=== PATIENT | female | born 1995 | race American Indian/Alaskan Native ===

== ENCOUNTER 2018-11-12 12:39 | Emergency (ER) | payer MEDICAID ==
[2018-11-12 12:59] VITALS: BP 99/61
[2018-11-12] MEDS ORDERED: NACL 0.9% 1000 ML 1,000 ML IV ONE (13:00)
--- NOTE | 2018-11-12 13:07 | Emergency Department Report ---
ED Syncope HPI - General Chief Complaint: Syncope Stated Complaint: SYNCOPY Time Seen by Provider: 11/12/18 12:51 Source: patient, family, EMS Exam Limitations: no limitations - History of Present Illness Initial Comments: Ms. Heredia is a very pleasant 23 yo female with hx of asthma who presents after syncopal episode at a retail center. She had preceding sensation of lightheade dness. She had been in her normal state of health prior to episode. She is currently 16 weeks pregant. JUSTIN 04/27/2019. Has been eating well. Her fiance does not feel that she drinks enough fluid. NO chest pain or palpitations. Denies leg pain. No abd pain. No VB. Has had intermittent headaches over the past several weeks, frontal mild throbbing headache which resolves spontaneously. Currenty feels lightheaded while sitting in stretcher. Primary Medical Esthetician Dr. Beatris Campos. Ms. Heredia plans to deliver her baby at [facility]. THis is Ms. Heredia' first . She underwent genetic screening on yesterday. ED Review of Systems ROS: Stated complaint: SYNCOPY Other details as noted in HPI Comment: All other systems reviewed and negative Constitutional: denies: fever, malaise Respiratory: denies: cough Cardiovascular: denies: chest pain ED Past Medical Hx - Past Medical History Previous Medical History?: Yes Hx Asthma: Yes - Surgical History Past Surgical History?: No - Social History Smoking Status: Never Smoker ED Physical Exam - General Limitations: No Limitations General appearance: alert, in no apparent distress - Head Head exam: Present: atraumatic, normocephalic - Eye Eye exam: Present: normal appearance - ENT ENT exam: Present: mucous membranes moist - Neck Neck exam: Present: normal inspection. Absent: tenderness, meningismus - Respiratory Respiratory exam: Present: normal lung sounds bilaterally. Absent: respiratory distress, wheezes, rhonchi - Cardiovascular Cardiovascular Exam: Present: regular rate, normal rhythm, normal heart sounds. Absent: systolic murmur, diastolic murmur, rubs, gallop - GI/Abdominal GI/Abdominal exam: Present: soft, normal bowel sounds, other (gravid abdomen). Absent: tenderness, guarding, rebound - Extremities Exam Extremities exam: Present: normal inspection - Back Exam Back exam: Present: normal inspection - Neurological Exam Neurological exam: Present: alert, oriented X3 - Psychiatric Psychiatric exam: Present: normal affect, normal mood - Skin Skin exam: Present: warm, dry, intact, normal color. Absent: rash ED Course Vital Signs 11/12/18 12:58 Temperature 98.9 F Pulse Rate 88 Respiratory 16 Rate Blood Pressure 99/61 Blood Pressure 99/61 [Left] O2 Sat by Pulse 100 Oximetry ED Medical Decision Making - EKG Data EKG shows normal: sinus rhythm, axis, intervals, QRS complexes, ST-T waves Rate: normal - EKG Data Interpretation: no acute changes, normal EKG - Medical Decision Making Ms. Heredia presents with syncope with preceding lightheadedness. My clinical impression: orthostasis in . No indication of pulmonary embolism, arrhythmia or severe dehydration. Encouraged hydration. She received IV fluid in the ED. CBC chemistry within normal limits. Critical care attestation.: If time is entered above; I have spent that time in minutes in the direct care of this critically ill patient, excluding procedure time. ED Disposition Clinical Impression: Orthostasis, Syncope, Second trimester Disposition: DC-01 TO HOME OR SELFCARE Is pt being admited?: No Does the pt Need Aspirin: No Condition: Stable Instructions: Syncope (ED) Referrals: PRIMARY CARE, [Referring] - 3-5 Days
[2018-11-12 13:21] LABS: Basophils % (Auto) 0.3 % (0.0-1.8); Eosinophils # (Auto) 0.1 K/mm3 (0.0-0.4); Eosinophils % (Auto) 0.5 % (0.0-4.3); Hematocrit 34.6 % (30.3-42.9); Hemoglobin 11.4 gm/dl (10.1-14.3); Lymphocytes # (Auto) 2.1 K/mm3 (1.2-5.4); Lymphocytes % (Auto) 21.2 % (13.4-35.0); Mean Corpuscular HGB Conc 33 % (30-34); Mean Corpuscular Volume 83 fl (79-97); Monocytes # (Auto) 0.8 K/mm3 (0.0-0.8); Platelet Count 215 K/mm3 (140-440); Red Blood Count 4.16 M/mm3 (3.65-5.03); Red Cell Distribution Width 13.1 % (13.2-15.2)
[2018-11-12 13:41] LABS: BUN/Creatinine Ratio 10; Blood Urea Nitrogen 5 mg/dL (7-17); Calcium 8.6 mg/dL (8.4-10.2); Hemolysis Index 5
== END 2018-11-12 13:55 | disposition home or self-care (01) ==
LOC: ED 12:39
DX: O26.892 Other specified pregnancy related conditions, second trimester (principal); R55 Syncope and collapse; R42 Dizziness and giddiness; Z3A.16 16 weeks gestation of pregnancy
CPT/HCPCS: 36415; 80048; 85025; 93005; 93010; 96360; 99284; J7030

== ENCOUNTER 2019-02-19 17:10 | Observation (INO) | payer OTHER, MEDICAID ==
[2019-02-19] MEDS ORDERED: LACTATED RINGERS 1,000 ML IV ONE (18:48)
[2019-02-19 19:33] LABS: Bacteria,Urine 1+ /HPF (Negative); Bilirubin,Urine NEG (Negative); Blood,Urine NEG (Negative); Calcium Oxalate Crystals,Urine FEW; Color,Urine Yellow (Yellow); Mucus,Urine 2+ /HPF; Urobilinogen,Urine < 2.0 mg/dL (<2.0)
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
[2019-02-19] MEDS ORDERED: LACTATED RINGERS 1,000 ML ONE (23:30)
[2019-02-20] MEDS ORDERED: TYLENOL PO PRN (00:15)
[2019-02-20] MEDS ORDERED: LACTATED RINGERS 1,000 ML IV SCH (01:00)
[2019-02-20] MEDS ORDERED: PRENATAL VITAMIN PO SCH (10:00)
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
[2019-02-20 16:45] VITALS: BP 128/63
== END 2019-02-20 17:22 | disposition home or self-care (01) ==
LOC: TRG 17:10 → LD 23:34
PROVIDERS: ADMIT Obstetrics & Gynecology; ATTEND Obstetrics & Gynecology
DX: O62.9 Abnormality of forces of labor, unspecified (principal); Z3A.30 30 weeks gestation of pregnancy
CPT/HCPCS: 36415; 76815; 81001; 82731; 87086; G0378; J7120

== ENCOUNTER 2019-03-03 14:00 | Outpatient (CLI) | payer MEDICAID ==
[2019-03-03] MEDS ORDERED: LACTATED RINGERS 500 ML IV ONE (14:26)
[2019-03-03 15:22] LABS: Bacteria,Urine 1+ /HPF (Negative); Bilirubin,Urine NEG (Negative); Blood,Urine NEG (Negative); Color,Urine Yellow (Yellow); Mucus,Urine FEW /HPF; Protein,Urine <15 mg/dL mg/dL (Negative); Urobilinogen,Urine < 2.0 mg/dL (<2.0)
[2019-03-03 15:27] LABS: Amphetamine Screen,Urine PRESUMPTIVE NEGATIVE; Benzodiazepines Screen,Urine PRESUMPTIVE NEGATIVE; Cannabinoid Screen,Urine PRESUMPTIVE NEGATIVE; Cocaine Screen,Urine PRESUMPTIVE NEGATIVE; Methadone Screen,Urine PRESUMPTIVE NEGATIVE; Opiate Screen,Urine PRESUMPTIVE NEGATIVE
[2019-03-03] MEDS ORDERED: LACTATED RINGERS 1,000 ML IV ONE (15:27)
[2019-03-03 16:29] VITALS: BP 121/65
--- NOTE | 2019-03-03 16:50 | Event Note ---
Date: 03/03/19 (fell chasing her dog) Pt reports goof FM denies any lof. Reports a d/c that has been ongoing She is being treated for BV by her OB provider. Complete tx as RX US no abruption, vertex, OMER 15, placenta Grade 1. Pt continued to have regular ctx SVE closed long OOP Terb X 1 given CTX resolved pt states she is still having pubic bone pain. Instructed to f/u with her OB tomorrow. Encouraged to come back with any decreased FM, LOF, vaginal bleeding All questions addressed.
[2019-03-03] MEDS ORDERED: BRETHINE SUB-Q ONE (17:05)
--- NOTE | 2019-03-03 17:18 | Ultrasound Report ---
PROCEDURE: US OB LIMITED HISTORY: les placenta scan FINDINGS: Real-time ultrasound of the pelvis was performed with attention to the gravid uterus. There is a single live intrauterine gestation in cephalic lie with cardiac activity at 143 bpm. There is a posterior fundal placenta, grade 1. No abruption or previa is seen. Amniotic fluid index is 15.7 cm which is within normal limits. IMPRESSION: No placental abruption Amniotic fluid index is within normal limits This document is electronically signed by Ivan Madden MD., March 03 2019 05:16:41 PM ET
== END 2019-03-03 17:47 | disposition home or self-care (01) ==
LOC: TRG 14:00 → LD 14:01 → TRG 17:47
PROVIDERS: ATTEND Obstetrics & Gynecology
DX: O26.893 Other specified pregnancy related conditions, third trimester (principal); R10.9 Unspecified abdominal pain; R10.2 Pelvic and perineal pain; W19.XXXA Unspecified fall, initial encounter; Z3A.32 32 weeks gestation of pregnancy; Y93.02 Activity, running; Y92.89 Other specified places as the place of occurrence of the external cause; Y99.8 Other external cause status
CPT/HCPCS: 76815; 80307; 81001; 96360; 96361; 96372; J3105; J7120

== ENCOUNTER 2021-03-21 08:22 | Emergency (ER) | payer MEDICAID ==
--- NOTE | 2021-03-21 11:06 | Ultrasound Report ---
OB ULTRASOUND >= 14 WEEKS FETUS INDICATION: abdominal pain COMPARISON: None at this facility FINDINGS: A single gestation intrauterine is present with cephalic presentation. The placenta is righ t lateral, grade 0 and free of the cervical os. heart tones measure 170 bpm. The cervix measur es 3.5 cm in length. Qualitative amniotic fluid volume is unremarkable. OMER was not measured. Too early to perform anatomical survey. Biparietal diameter is 3.0 cm which equals 15 weeks 3 days. Head circumference is 11.2 cm which equals 15 weeks 2 days. Abdominal circumference is 8.6 cm which equals 15 weeks 0 days. Femur length is 1.4 cm which equals 14 weeks 1 day. Overall estimated sonographic age is 15 weeks 0 days. EDC: 09/12/2021. HC/AC ratio: 1.25 Cephalic index: 78.8. IMPRESSION: Viable single intrauterine as described. No acute abnormality is detected. Signer Name: Gera Saenz Jr, MD Signed: 03/21/2021 11:02 AM Workstation Name: [id number]
[2021-03-21] MEDS ORDERED: ONDANSETRON 4 MG/2 ML INJ IV ONE ×2 (11:21→13:47)
[2021-03-21] MEDS ORDERED: SODIUM CHLORIDE 0.9% 1000 ML 1,000 ML IV ONE ×2 (11:21→14:03)
[2021-03-21] MEDS ORDERED: MORPHINE 4 MG/1 ML INJ IV ONE (11:24)
--- NOTE | 2021-03-21 11:27 | Emergency Department Report ---
ED Abdominal Pain HPI - General Chief Complaint: Nausea/Vomiting/Diarrhea Stated Complaint: ABD PAINS /14 WKS PREG Time Seen by Provider: 03/21/21 11:20 Source: patient Mode of arrival: Ambulatory Limitations: No Limitations - History of Present Illness Initial Comments: Patient is 25 years old female 3 para 1 and 1 ectopic . Patient is 15 weeks . Patient presented to the ER complaining of suprapubic abdominal pain associated with excessive nausea and vomiting. Patient stated that she is unable to keep anything down. Patient denied any fever or chills. No vaginal bleeding or vaginal discharge. Patient denied any chest pain, shortness of breath and cough. MD Complaint: abdominal pain -: days(s) Location: suprapubic Radiation: none Migration to: no migration Severity: moderate Severity scale (0 -10): 7 Quality: cramping Consistency: intermittent Associated Symptoms: nausea, vomiting. denies: diarrhea - Related Data Home Medications Medication Instructions Recorded Confirmed Last Taken Ferrous Sulfate [Iron 325 MG] 325 mg PO DAILY 02/19/19 02/19/19 02/16/19 09:00 1 Vit-Fe Fumar-FA [ 1 tab PO QDAY 02/19/19 02/19/19 02/19/19 09:00 Vitamin] 1 Previous Rx's Medication Instructions Recorded Last Taken Type HYDROcodone/APAP 5-325 [[place] 1 - 2 each PO Q6HR PRN #14 tablet 09/21/19 Unknown Rx 5/325] Ibuprofen [Motrin 800 MG tab] 800 mg PO Q8HR PRN #20 tablet 09/21/19 Unknown Rx cephALEXin [Keflex] 500 mg PO Q6HR #28 capsule 09/21/19 Unknown Rx Allergies Allergy/AdvReac Type Severity Reaction Status Date / Time latex Allergy Intermediate Rash Verified 02/19/19 18:44 ED Review of Systems ROS: Stated complaint: ABD PAINS /14 WKS PREG Other details as noted in HPI Comment: All other systems reviewed and negative Constitutional: denies: chills, fever Respiratory: denies: cough, orthopnea, shortness of breath, SOB with exertion, SOB at rest Cardiovascular: denies: chest pain, palpitations Gastrointestinal: abdominal pain, nausea, vomiting. denies: diarrhea, constipation, hematemesis, melena, hematochezia Genitourinary: frequency Musculoskeletal: back pain Neurological: denies: headache, weakness, numbness, paresthesias, confusion ED Past Medical Hx - Past Medical History Hx Asthma: Yes ("I'm taking albuterol inhaler") Additional medical history: anemia - Surgical History Past Surgical History?: Yes Additional Surgical History: ectopic PG - Social History Smoking Status: Never Smoker Substance Use Type: None - Medications Home Medications: Home Medications Medication Instructions Recorded Confirmed Last Taken Type Ferrous Sulfate [Iron 325 MG] 325 mg PO DAILY 02/19/19 02/19/19 02/16/19 09:00 History 1 Vit-Fe Fumar-FA [ 1 tab PO QDAY 02/19/19 02/19/19 02/19/19 09:00 History Vitamin] 1 HYDROcodone/APAP 5-325 [[place] 1 - 2 each PO Q6HR PRN #14 tablet 09/21/19 Unknown Rx 5/325] Ibuprofen [Motrin 800 MG tab] 800 mg PO Q8HR PRN #20 tablet 09/21/19 Unknown Rx cephALEXin [Keflex] 500 mg PO Q6HR #28 capsule 09/21/19 Unknown Rx ED Physical Exam - General Limitations: No Limitations General appearance: alert, in no apparent distress - Head Head exam: Present: atraumatic, normocephalic, normal inspection - ENT ENT exam: Present: mucous membranes dry - Neck Neck exam: Present: normal inspection, full ROM. Absent: tenderness, men ingismus - Respiratory Respiratory exam: Present: normal lung sounds bilaterally - Cardiovascular Cardiovascular Exam: Present: regular rate, normal rhythm, normal heart sounds - GI/Abdominal GI/Abdominal exam: Present: soft, normal bowel sounds, organomegaly. Absent: distended, tenderness, guarding, rebound, rigid, mass, bruit, pulsatile mass, hernia - Extremities Exam Extremities exam: Present: normal inspection, full ROM, normal capillary refill. Absent: tenderness, pedal edema, calf tenderness - Back Exam Back exam: Present: normal inspection, full ROM. Absent: CVA tenderness (R), CVA tenderness (L) - Neurological Exam Neurological exam: Present: alert, oriented X3, CN II-XII intact, normal gait, reflexes normal. Absent: motor sensory deficit - Psychiatric Psychiatric exam: Present: normal mood - Skin Skin exam: Present: warm, dry, intact, normal color ED Course Vital Signs 03/21/21 03/21/2103/21/21 08:28 12:00 12:15 Temperature 98.5 F Pulse Rate 100 H Respiratory 16 Rate Blood Pressure 108/66 109/76 Blood Pressure [Left] O2 Sat by Pulse 98 100 100 Oximetry 03/21/21 03/21/21 03/21/21 12:26 12:31 12:45 Temperature Pulse Rate 88 Respiratory Rate Blood Pressure 106/71 93/55 Blood Pressure 113/89 [Left] O2 Sat by Pulse 100 100 100 Oximetry 03/21/21 03/21/21 03/21/21 13:01 13:15 13:31 Temperature Pulse Rate Respiratory Rate Blood Pressure 96/56 103/63 110/62 Blood Pressure [Left] O2 Sat by Pulse 100 100 98 Oximetry 03/21/21 03/21/21 03/21/21 13:55 14:01 14:15 Temperature Pulse Rate Respiratory Rate Blood Pressure 115/71 115/71 116/67 Blood Pressure [Left] O2 Sat by Pulse 100 100 100 Oximetry 03/21/21 03/21/21 03/21/21 14:31 14:45 15:01 Temperature Pulse Rate Respiratory Rate Blood Pressure 111/70 100/58 97/56 Blood Pressure [Left] O2 Sat by Pulse 100 99 99 Oximetry 03/21/21 03/21/21 03/21/21 15:15 15:31 15:45 Temperature Pulse Rate Respiratory Rate Blood Pressure 110/62 101/62 100/59 Blood Pressure [Left] O2 Sat by Pulse 100 100 100 Oximetry 03/21/21 03/21/21 16:01 16:15 Temperature Pulse Rate Respiratory Rate Blood Pressure 94/60 94/54 Blood Pressure [Left] O2 Sat by Pulse 100 100 Oximetry ED Medical Decision Making - Lab Data Result diagrams: 03/21/21 11:59 03/21/21 11:59 - Radiology Data Radiology results: report reviewed - Medical Decision Making Patient is 25 years old female 3 para 1 and 1 ectopic . Patient is 15 weeks . Patient presented to the ER complaining of suprapubic abdominal pain associated with excessive nausea and vomiting. Patient stated that she is unable to keep anything down. Patient denied any fever or chills. No vaginal bleeding or vaginal discharge. Patient denied any chest pain, shortness of breath and cough. Patient received normal saline and Zofran. Patient stated that she is feeling much better. Labs reviewed and is unremarkable except for ketones in the urine indicating dehydration. ultrasound showed a 15weeks gestation viable with no problem. Patient advised to follow-up with her OB doctor in the next 2 to 3 days and to return to the ER if she develop any new symptoms. Critical care attestation.: If time is entered above; I have spent that time in minutes in the direct care of this critically ill patient, excluding procedure time. ED Disposition Clinical Impression: Intractable nausea and vomiting, Abdominal pain affecting Disposition: DC-01 TO HOME OR SELFCARE Is pt being admited?: No Condition: Stable Instructions: Abdominal Pain During , [id number], Nausea and Vomitin g, Adult, [id number]
[2021-03-21 12:30] LABS: Basophils % (Auto) 0.4 % (0.0-1.8); Eosinophils % (Auto) 0.2 % (0.0-4.3); Hematocrit 35.8 % (30.3-42.9); Hemoglobin 11.8 gm/dl (10.1-14.3); Lymphocytes # (Auto) 1.1 K/mm3 (1.2-5.4); Lymphocytes % (Auto) 20.7 % (13.4-35.0); Mean Corpuscular HGB Conc 33 % (30-34); Mean Corpuscular Volume 83 fl (79-97); Monocytes # (Auto) 0.5 K/mm3 (0.0-0.8); Monocytes % (Auto) 10.4 % (0.0-7.3); Platelet Count 199 K/mm3 (140-440); Red Blood Count 4.32 M/mm3 (3.65-5.03); Red Cell Distribution Width 13.5 % (13.2-15.2)
[2021-03-21 12:48] LABS: Blood Urea Nitrogen 4 mg/dL (7-17); Calcium 9.2 mg/dL (8.4-10.2); Hemolysis Index 0
[2021-03-21 13:06] LABS: BUN/Creatinine Ratio 10
[2021-03-21 14:09] LABS: Bilirubin,Urine NEG (Negative); Blood,Urine NEG (Negative); Color,Urine Yellow (Yellow); Mucus,Urine 3+ /HPF
[2021-03-21 16:31] VITALS: BP 94/54
== END 2021-03-21 17:06 | disposition home or self-care (01) ==
LOC: ED 08:22
DX: O21.8 Other vomiting complicating pregnancy (principal); O26.892 Other specified pregnancy related conditions, second trimester; R10.2 Pelvic and perineal pain; J45.909 Unspecified asthma, uncomplicated; Z3A.15 15 weeks gestation of pregnancy; Z98.890 Other specified postprocedural states; Z79.1 Long term (current) use of non-steroidal anti-inflammatories (NSAID); Z79.899 Other long term (current) drug therapy; Z91.040 Latex allergy status
CPT/HCPCS: 36415; 76805; 80048; 81001; 84702; 85025; 96361; 96374; 96375; 96376; 99284; J2270; J2405; J7030

== ENCOUNTER 2021-05-29 15:45 | Outpatient (CLI) | payer OTHER, MEDICAID ==
[2021-05-29 17:26] VITALS: BP 105/63
[2021-05-29] MEDS ORDERED: LACTATED RINGERS 500 ML IV ONE (19:59)
--- NOTE | 2021-05-30 06:46 | Ultrasound Report ---
US OB limited INDICATION / CLINICAL INFORMATION: placenta scan. COMPARISON: None available. FINDINGS: Intrauterine is noted in cephalic presentation with heart rate of 152. There is a grade 0 fundal placenta. No placental abnormalities are seen. IMPRESSION: 1. No placental abnormalities are seen. Signer Name: Drake Alvarado MD Signed: 05/30/2021 6:41 AM Workstation Name: [id number]
== END 2021-05-29 20:25 | disposition home or self-care (01) ==
LOC: TRG 15:45 → APU 16:13 → TRG 20:25
PROVIDERS: ATTEND Obstetrics & Gynecology
DX: Z34.92 Encounter for supervision of normal pregnancy, unspecified, second trimester (principal); Z3A.24 24 weeks gestation of pregnancy
CPT/HCPCS: 59025; 76815